=== PATIENT | female | born 1945 | race Caucasian/White ===

== ENCOUNTER 2022-11-18 19:16 | Emergency (ER) | payer MEDICARE ==
[~2022-11-18] VITALS: Ht 167.6 cm; Wt 71.2 kg
--- NOTE | 2022-11-18 20:41 | ER.PDOC ---
General Chief Complaint: Requesting Medical Care Stated Complaint: CONGESTION,COUGH,RUNNY NOSE Time seen by MD: 20:41 Source: patient, family Exam Limitations: no limitations History of Present Illness Initial Comments 77 yo F has had URI symptoms and mylagias since Friday. is similarly ill. Did not get her flu shot this year. Vaccinated against Covid but not boosted with bivalent. Coughing has been aggravating her chronic back pain. Timing/Duration: gradual Severity: moderate Associated Symptoms: fever/chills, cough Worsen By: deep breathing Prior symptoms/Treatment: Similar symptoms previous, Recenly Seen Constitutional: fever, malaise EENTM: no symptoms reported Respiratory: cough Cardiovascular: no symptoms reported Gastrointestinal: no symptoms reported Genitourinary: no symptoms reported Musculoskeletal: see HPI, muscle pain Skin: no symptoms reported Psychiatric/Neurological: no symptoms reported Endocrine: no symptoms reported All Other Systems: Reviewed and Negative Past Medical History Medical History: no pertinent history Family History Significant Family History: no pertinent family hx Social History Smoking: non-smoker Reviewed Nursing Reviewed: Vital Signs, Abn. Noted, Nursing Assessment Physical Exam General Appearance: alert, no distress Ear: ear nml Nose: nose nml Throat: airway nml Neck: supple Respiratory: breath sounds nml (some mild generalized wheezes, comparable to smoker's wheezes) Abdomen: non-tender CVS: reg rate & rhythm, heart sounds nml Skin: color nml, no rash Extremities: non-tender NEURO/PSYCH: oriented x 3, CN's nml as tested, motor nml, sensation nml Results/Orders Results/Orders Orders - MIKE CASTELLANOS MD Influenza A&B (11/18/22 20:42) Covid19 Antigen Aruna Dorothy (11/18/22 20:42) Strep Screen (11/18/22 20:49) Xr Chest 2v (11/18/22 21:03) Naproxen (Naproxen 500mg) (11/18/22 21:29) Guaifenesin/Dextromethorphan (Robitussin (11/18/22 21:29) Vital Signs Date Time Temp Pulse Resp B/P (MAP) Pulse Ox O2 Delivery O2 Flow Rate FiO2 11/18/22 20:55 98.1 66 18 153/114 (127) 95 Room Air* 0 21 11/18/22 20:51 98.1 66 18 95 11/18/22 20:51 98.1 66 18 153/114 (127) 95 Room Air* 0 21 11/18/22 20:51 98.1 66 18 Laboratory Tests Test 11/18/22 20:28 Influenza Type A Antigen POSITIVE (NEG) A Influenza Type B Antigen NEGATIVE (NEG) SARS-CoV-2 Antigen (Rapid) NEGATIVE (NEGATIVE) Group A Streptococcus Screen NEGATIVE (NEGATIVE) Progress Progress Positive for influenza A, outside of tamiflu window. We will treat symptomatically. EKG/XRAY/CT/US XRAY: chest XRAY Comments: NAD ER DEPART Departure Time of Disposition: 21:41 Disposition: 01 HOME / SELF CARE / HOMELESS Impression: Primary Impression: Influenza A Condition: Stable Patient Instructions: Influenza Facts, Influenza, Adult Referrals: KANDY SOTELO MD (PCP) PRIMARY CARE PROVIDER Duration or Time Spent with Pa: 10 min MIKE CASTELLANOS MD Nov 18, 2022 20:41
[2022-11-18 20:51] VITALS: BP 153/114
[2022-11-18 20:55] VITALS: BP 153/114
--- NOTE | 2022-11-18 21:25 | DIREP ---
PROCEDURE:CHEST 2 VIEWS COMPARISON:None. INDICATIONS:cough/dyspnea FINDINGS: LUNGS/PLEURA:No focal consolidation, pleural effusion or pneumothorax. VASCULATURE:Normal. Unremarkable pulmonary vasculature. CARDIAC:Normal. No cardiac silhouette abnormality or cardiomegaly. MEDIASTINUM:Atherosclerotic aorta with no visible aneurysm. BONES:Normal. No fracture or visible bony lesion. OTHER:Negative. CONCLUSION:No active cardiopulmonary process demonstrated. Dictated by: Johnnie Jung M.D. on 11/18/2022 at 09:22 PM
[2022-11-18] MEDS ORDERED: ROBITUSSIN DM PO STA (21:29)
[2022-11-18] MEDS ORDERED: NAPROXEN 500MG PO STA (21:29)
[2022-11-18] MEDS ORDERED: ROBITUSSIN DM ONE (21:43)
== END 2022-11-18 21:49 | disposition home or self-care (01) ==
LOC: ER 19:16
DX: J10.1 Influenza due to other identified influenza virus with other respiratory manifestations (principal); G89.29 Other chronic pain; Z20.822 Contact with and (suspected) exposure to COVID-19
CPT/HCPCS: 71046; 87070; 87426; 87804; 87880; 99284

== ENCOUNTER → 2023-02-14 | Outpatient (CLI) | payer MEDICARE ==
--- NOTE | 2023-02-14 13:28 | DIREP ---
PROCEDURE:XR SPINE CERVICAL 2 OR 3 VIEWS COMPARISON:None. INDICATIONS:M54.2 CERVICAL SPINE PAIN TECHNIQUE:AP, lateral, and dens views of the cervical spine are provided. FINDINGS: ALIGNMENT:Normal. VERTEBRAE:No fractures identified. DISK SPACES:Multilevel disc degenerative change. There is disc height loss, endplate irregularity and small amounts of ventral osteophyte. Mild regions of facet sclerosis and hypertrophy. Findings are predominantly seen at the C5-6 and C6-7 levels. CERVICAL RIBS:None. OTHER:Normal. CONCLUSION:Degenerative changes. Acute findings are not identified. Dictated by: Jose Clement MD on 02/14/2023 at 01:24 PM
--- NOTE | 2023-02-14 15:34 | DIREP ---
PROCEDURE:XRAY SPINE LUMBAR 2-3 VWS COMPARISON:None. INDICATIONS:M54.50 LOW BACK PAIN TECHNIQUE:AP, lateral, and coned down lateral views of the lumbar spine are provided. FINDINGS: ALIGNMENT:Mild straightening of the lumbar lordosis and mild levoconvex scoliosis. VERTEBRAE:Multilevel facet arthropathy greatest at L5-S1. The lumbar vertebral body heights are maintained. DISK SPACES:Multilevel disc space loss, greater at L3-L4, L4-5, and L5-S1. Marginal osteophytes are also noted. SPONDYLOLISTHESIS:None. SACROILIAC JOINTS:Mild degenerative changes. OTHER:Electronic device and lead projecting over the left hemipelvis. Cholecystectomy clips are seen in the right upper quadrant. Moderate stool burden. Pelvic phleboliths are noted. CONCLUSION: Multilevel degenerative changes of the lumbar spine as above. Dictated by: Juan R Oleary MD. on 02/14/2023 at 03:31 PM
== END | disposition home or self-care (01) ==
LOC: RAD 10:16
PROVIDERS: ATTEND Chiropractor
DX: M50.323 Other cervical disc degeneration at C6-C7 level (principal); M47.817 Spondylosis without myelopathy or radiculopathy, lumbosacral region; M40.46 Postural lordosis, lumbar region; M25.78 Osteophyte, vertebrae; Z90.49 Acquired absence of other specified parts of digestive tract
CPT/HCPCS: 72040; 72100

== ENCOUNTER → 2023-02-24 | Outpatient (CLI) | payer MEDICARE ==
[2023-03-03 06:13] LABS: ESTRADIOL 21.6 pg/mL (.)
== END | disposition home or self-care (01) ==
LOC: LAB 11:21
PROVIDERS: ATTEND Student in an Organized Health Care Education/Training Program
DX: R79.89 Other specified abnormal findings of blood chemistry (principal)
CPT/HCPCS: 36415; 82670; 84402; 84403

== ENCOUNTER → 2023-04-01 | Outpatient (CLI) | payer MEDICARE ==
[2023-04-01 11:33] LABS: BASOPHIL # 0.1 10^3/uL (0.0-0.1); BASOPHIL % 0.5 % (0.0-0.2); EOSINOPHIL # 0.2 10^3/uL (0.0-0.2); EOSINOPHIL % 2.2 % (0.0-5.0); LYMPHOCYTES # 2.43 10^3/uL1 (1.0-4.8); LYMPHOCYTES % 26.2 % (24.0-44.0); MONOCYTES # 0.7 10^3/uL (0.3-0.8); MONOCYTES % 7.1 % (5.0-12.0); NEUTROPHIL # 5.9 10^3/uL (1.8-7.7); NEUTROPHILS % 63.7 % (41.0-85.0); RED CELL DISTRIBUTION WIDTH 12.7 % (11.5-14.5)
[2023-04-01 11:58] LABS: CARBON DIOXIDE 31.5 mmol/L (20.0-32)
== END | disposition home or self-care (01) ==
LOC: LAB 11:17
PROVIDERS: ATTEND Student in an Organized Health Care Education/Training Program
DX: E03.9 Hypothyroidism, unspecified (principal); E88.9 Metabolic disorder, unspecified
CPT/HCPCS: 36415; 80053; 80061; 84439; 84443; 85025

== ENCOUNTER → 2023-04-24 | Outpatient (CLI) | payer OTHER, SELFPAY ==
[2023-04-24 13:06] LABS: BASOPHIL # 0.1 10^3/uL (0.0-0.1); BASOPHIL % 0.5 % (0.0-0.2); EOSINOPHIL # 0.1 10^3/uL (0.0-0.2); EOSINOPHIL % 1.1 % (0.0-5.0); LYMPHOCYTES # 2.65 10^3/uL1 (1.0-4.8); LYMPHOCYTES % 25.9 % (24.0-44.0); MEAN CORP HGB 29.9 pg (26-34); MONOCYTES # 0.7 10^3/uL (0.3-0.8); MONOCYTES % 6.5 % (5.0-12.0); NEUTROPHIL # 6.7 10^3/uL (1.8-7.7); NEUTROPHILS % 65.7 % (41.0-85.0); PLATELET COUNT 237 10^3/uL (150-400); RED CELL DISTRIBUTION WIDTH 12.6 % (11.5-14.5)
[2023-04-24 13:26] LABS: CARBON DIOXIDE 30.3 mmol/L (20.0-32)
--- NOTE | 2023-04-24 16:35 | DIREP ---
PROCEDURE:XRAY KNEE 3 VIEWS-RT COMPARISON:None. INDICATIONS:M25.461 EFFUSION RIGHT KNEE FINDINGS: BONES:Small enthesophyte at the quadriceps attachment to the patella. Small osteophytes throughout the knee. JOINTS:Chondrocalcinosis in the lateral compartment. SOFT TISSUES:Mild prepatellar soft tissue thickening. OTHER:No significant joint effusion. CONCLUSION:Mild degenerative changes. CPPD in the lateral compartment. Dictated by: Avel Sandra M.D. on 04/24/2023 at 04:33 PM
--- NOTE | 2023-04-24 16:40 | DIREP ---
PROCEDURE:XRAY SHOULDER MIN 2 VWS-LT COMPARISON:None. INDICATIONS:M25.512 PAIN IN LEFT SHOULDER FINDINGS: BONES:Small osteophytes at the AC joint. JOINTS:No dislocation SOFT TISSUES:Normal. OTHER:No additional finding CONCLUSION:Mild degenerative changes. Dictated by: Avel Sandra M.D. on 04/24/2023 at 04:33 PM
== END | disposition home or self-care (01) ==
LOC: RAD 12:36
PROVIDERS: ATTEND Student in an Organized Health Care Education/Training Program
DX: M19.012 Primary osteoarthritis, left shoulder (principal); M17.11 Unilateral primary osteoarthritis, right knee; M25.712 Osteophyte, left shoulder; M76.51 Patellar tendinitis, right knee; R21 Rash and other nonspecific skin eruption; M25.461 Effusion, right knee
CPT/HCPCS: 36415; 80053; 85025; 86200; 86225; 86431; 73030-LT; 73562-RT

== ENCOUNTER → 2024-12-29 | Outpatient (CLI) | payer OTHER, MEDICARE ==
[~2024-12-29] MED LIST: ACET325T12 PO; AMLO-170 PO; CALC-599 PO; CYAN500T6 PO; DIAZ5TAB4 PO; LEVO100T5 PO; LOSA50TA14 PO; MELO15TA24 PO; ROSU20TA2 PO; TRAM50TA PO; VANC1PIG IV; VITA25006 PO
== END | disposition home or self-care (01) ==
LOC: RAD 13:56
PROVIDERS: ATTEND Orthopaedic Surgery
DX: M25.561 Pain in right knee (principal); M43.8X9 Other specified deforming dorsopathies, site unspecified; Z96.651 Presence of right artificial knee joint; M25.461 Effusion, right knee
CPT/HCPCS: 73562-RT

== ENCOUNTER → 2025-07-28 | Outpatient (CLI) | payer OTHER, MEDICARE ==
[~2025-07-28] MED LIST changes: -CYAN500T6 PO; +CYAN500T65 PO
== END | disposition home or self-care (01) ==
LOC: RAD 16:28
PROVIDERS: ATTEND Orthopaedic Surgery
DX: M25.561 Pain in right knee (principal)
CPT/HCPCS: 73562-RT